=== PATIENT | male | born 1975 ===

== ENCOUNTER 2018-05-07 19:58 | Emergency (ER) | payer SELFPAY ==
[2018-05-07 20:06] VITALS: RESP 18; O2SAT 98
--- NOTE | 2018-05-07 20:42 | ED PDOC ---
HPI: Abdomen Time Seen by Provider: 05/07/18 20:22 Chief Complaint (Nursing): Abdominal Pain Chief Complaint (Provider): Abd pain History Per: Patient History/Exam Limitations: no limitations Onset/Duration Of Symptoms: Days Current Symptoms Are (Timing): Still Present Additional Complaint(s): Pain since yesterday to RLQ and R flank. No dysuria, weakness, chest pain, dyspnea. No testicular pain. No fever. No new food or drinks. Past Medical History Reviewed: Nursing Documentation, Vital Signs Vital Signs: Last Vital Signs Temp 98.3 F 05/07/18 20:04 Pulse 72 05/07/18 20:04 Resp 18 05/07/18 20:04 BP 160/101 H 05/07/18 20:04 Pulse Ox 98 05/07/18 20:42 - Medical History PMH: No Chronic Diseases - Surgical History Surgical History: No Surg Hx - Family History Family History: States: Unknown Family Hx - Living Arrangements Living Arrangements: With Family - Home Medications Home Medications: Ambulatory Orders Medication Instructions Recorded Famotidine [Pepcid] 20 mg PO DAILY PRN #6 tab 05/07/18 Ibuprofen [Motrin] 600 mg PO TID 7 Days tab 05/07/18 - Allergies Allergies/Adverse Reactions: Allergies Allergy/AdvReac Type Severity Reaction Status Date / Time No Known Allergies Allergy Verified 05/07/18 20:06 Review of Systems ROS Statement: Except As Marked, All Systems Reviewed And Found Negative Gastrointestinal: Positive for: Abdominal Pain Physical Exam - Reviewed Nursing Documentation Reviewed: Yes Vital Signs Reviewed: Yes - Physical Exam Appears: Positive for: Non-toxic, No Acute Distress Head Exam: Positive for: ATRAUMATIC, NORMAL INSPECTION, NORMOCEPHALIC Skin: Positive for: Normal Color, Warm, DRY Eye Exam: Positive for: EOMI, Normal appearance, PERRL ENT: Positive for: Normal ENT Inspection Neck: Positive for: Normal, Painless ROM Cardiovascular/Chest: Positive for: Regular Rate, Rhythm Respiratory: Positive for: CNT, Normal Breath Sounds Gastrointestinal/Abdominal: Positive for: Soft, Tenderness (RLQ ) Back: Positive for: R CVA Tenderness Extremity: Positive for: Normal ROM Neurologic/Psych: Positive for: Alert, Oriented - Laboratory Results Result Diagrams: 05/07/18 20:54 05/07/18 20:54 Interpretation Of Abn Labs: no acute - ECG O2 Sat by Pulse Oximetry: 98 - Progress ED Course And Treament: 2344: Pt. stable. AAOx3. Pain free. Tolerated PO. FU with pcp. Disposition - Clinical Impression Clinical Impression: Abdominal pain - Patient ED Disposition Is Patient to be Admitted: No Counseled Patient/Family Regarding: Studies Performed, Diagnosis, Need For Followup, Rx Given - Disposition Referrals: [facility] [Outside] - 05/11/18 Disposition: Routine/Home Disposition Time: 23:45 Condition: STABLE Additional Instructions: Return if not better in 3 days. Prescriptions: Famotidine [Pepcid] 20 mg PO DAILY PRN #6 tab PRN Reason: Pain Ibuprofen [Motrin] 600 mg PO TID 7 Days tab Instructions: Acute Abdomen (Belly Pain), Adult (DC) Print Language: GERMAN
[2018-05-07 20:57] LABS: BASO # 0.1 K/uL (0.0-0.2); BASO % 1.4 % (0.0-2.0); EOS # 0.1 K/uL (0.0-0.7); EOS % 1.4 % (0.0-4.0); HEMOGLOBIN 14.4 g/dL (12.0-18.0); LYMPH # 2.4 K/uL (1.0-4.3); LYMPH % 32.9 % (20.0-40.0); MEAN CELL VOLUME 89.2 fl (80.0-94.0); MEAN CORPUSCULAR HEMOGLOBIN 30.2 pg (27.0-31.0); MEAN CORPUSCULAR HGB CONC 33.9 g/dL (33.0-37.0); MEAN PLATELET VOLUME 7.6 fl (7.2-11.7); MONO % 13.4 % (0.0-10.0); NEUT # 3.7 K/uL (1.8-7.0); NEUT % 50.9 % (50.0-75.0); NRBC % 0.1 % (0.0-0.0); RBC 4.77 Mil/uL (4.40-5.90); RED CELL DISTRIBUTION WIDTH 12.9 % (11.5-14.5); WHITE BLOOD COUNT 7.3 K/uL (4.8-10.8)
[2018-05-07] MEDS: Sodium Chloride 0.9% 1,000 ML IV STA (20:59)
[2018-05-07] MEDS: Iohexol 240 (50 ml) PO ONE (21:04)
[2018-05-07 21:25] LABS: ALB/GLOB RATIO 1.3 (1.0-2.1); ALBUMIN 4.2 g/dL (3.5-5.0); ALT/SGPT 46 U/L (21-72); AST/SGOT 38 U/L (17-59); BLOOD UREA NITROGEN 10 mg/dl (9-20); CALCIUM 9.2 mg/dL (8.4-10.2); GFR NON-AFRICAN AMERICAN > 60
[2018-05-07 21:43] LABS: URINE BACTERIA RARE (<OCC); URINE BILIRUBIN NEGATIVE (NEGATIVE); URINE BLOOD NEGATIVE (NEGATIVE); URINE CLARITY CLEAR (Clear); URINE COLOR YELLOW (YELLOW); URINE GLUCOSE (UA) NEG (Normal); URINE LEUKOCYTE ESTERASE NEG Leu/uL (Negative); URINE PROTEIN NEGATIVE (NEGATIVE); URINE UROBILINOGEN 0.2-1.0 mg/dL (0.2-1.0)
[2018-05-07] MEDS ORDERED: Sodium Chloride 0.9% 50 ML IV ONE (22:18)
[2018-05-07] MEDS ORDERED: Iohexol 300 100 ML IJ ONE (22:18)
[2018-05-07 23:55] VITALS: BP 141/93; PULSE 55; TEMP 97.9
--- NOTE | 2018-05-08 07:48 | CT ---
Date of service: 05/07/2018 PROCEDURE: CT Abdomen and Pelvis with contrast HISTORY: abd pain COMPARISON: None. TECHNIQUE: Contrast dose: Radiation dose: Total exam DLP = mGy-cm. This CT exam was performed using one or more of the following dose reduction techniques: Automated exposure control, adjustment of the mA and/or kV according to patient size, and/or use of iterative reconstruction technique. FINDINGS: LOWER THORAX: Unremarkable. LIVER: Unremarkable. No gross lesion or ductal dilatation. GALLBLADDER AND BILE DUCTS: Unremarkable. PANCREAS: Unremarkable. No gross lesion or ductal dilatation. SPLEEN: Unremarkable. ADRENALS: Unremarkable. No mass. KIDNEYS AND URETERS: Unremarkable. No hydronephrosis. No solid mass. VASCULATURE: Unremarkable. No aortic aneurysm. BOWEL: Unremarkable. No obstruction. No gross mural thickening. APPENDIX: Normal appendix. PERITONEUM: Unremarkable. No free fluid. No free air. LYMPH NODES: Unremarkable. No enlarged lymph nodes. BLADDER: Unremarkable. REPRODUCTIVE: Unremarkable. BONES: No acute fracture. OTHER FINDINGS: None. IMPRESSION: Unremarkable contrast enhanced CT of the abdomen and pelvis.
== END 2018-05-07 23:56 | disposition home or self-care (01) ==
LOC: H.ER 19:58
DX: R10.31 Right lower quadrant pain (principal)
CPT/HCPCS: 74177; 80053; 81003; 85025; 96374; 99284; J1885; J7030; Q9966; Q9967

== ENCOUNTER 2018-12-01 14:55 | Observation (INO) | payer SELFPAY ==
--- NOTE | 2018-12-01 15:41 | ED PDOC ---
HPI: Hypertension/Hypotension Time Seen by Provider: 12/01/18 15:05 Chief Complaint (Nursing): Chest Pain Chief Complaint (Provider): High BP, Chest Pressure History Per: Patient History/Exam Limitations: no limitations Onset/Duration Of Symptoms: Days (x5) Current Symptoms Are (Timing): Still Present Additional Complaint(s): 43 year old male present to the ED after [facility] referral for evaluation of elevated blood pressure at home and left sided chest pressure associated with shortness of breath and left arm tingling for the past five days. Patient denies other complaints or history of hypertension. PMD: [facility] Past Medical History Reviewed: Historical Data, Nursing Documentation, Vital Signs Vital Signs: Last Vital Signs Temp 98.3 F 12/01/18 15:01 Pulse 66 12/01/18 15:01 Resp 16 12/01/18 15:01 BP 162/93 H 12/01/18 15:01 Pulse Ox 98 12/01/18 15:01 - Medical History PMH: No Chronic Diseases - Surgical History Surgical History: No Surg Hx - Family History Family History: States: Unknown Family Hx - Social History Current smoker - smoking cessation education provided: No - Home Medications Home Medications: Ambulatory Orders Medication Instructions Recorded Aspirin [Aspirin Chewable] 81 mg PO DAILY #30 ctb 12/02/18 - Allergies Allergies/Adverse Reactions: Allergies Allergy/AdvReac Type Severity Reaction Status Date / Time No Known Allergies Allergy Verified 12/01/18 15:01 Review of Systems ROS Statement: Except As Marked, All Systems Reviewed And Found Negative Cardiovascular: Positive for: Chest Pain (chest pressure left sided), Other (elevated BP) Respiratory: Positive for: Shortness of Breath Neurological: Positive for: Other (tingling of left arm) Physical Exam - Reviewed Nursing Documentation Reviewed: Yes Vital Signs Reviewed: Yes - Physical Exam Appears: Positive for: No Acute Distress Head Exam: Positive for: ATRAUMATIC, NORMAL INSPECTION, NORMOCEPHALIC Skin: Positive for: Normal Color, Warm, Dry. Negative for: Rash Eye Exam: Positive for: Normal appearance, EOMI, PERRL ENT: Positive for: Normal ENT Inspection Neck: Positive for: Normal, Painless ROM, Supple Cardiovascular/Chest: Positive for: Regular Rate, Rhythm. Negative for: Chest Non Tender (reproducible tenderness to left anterior chest wall) Respiratory: Positive for: Normal Breath Sounds. Negative for: Accessory Muscle Use, Wheezing, Respiratory Distress Gastrointestinal/Abdominal: Positive for: Normal Exam, Soft. Negative for: Tenderness Back: Positive for: Normal Inspection Extremity: Positive for: Normal ROM (all extremities). Negative for: Tenderness (of upper/lower bilateral extremities), Calf Tenderness, Swelling (of upper/lower bilateral extremities) Neurological/Psych: Positive for: Awake, Alert, Normal Tone, Symmetric/Intact Strength (upper/lower bilateral extremities), Oriented (x3), Gait (steady, unassisted), insurance business analyst II-XII (intact). Negative for: Motor/Sensory Deficits, Facial Droop - Laboratory Results Result Diagrams: 12/02/18 05:05 12/02/18 05:05 - ECG Interpretation Of ECG: NSR @ 60, no ST-T changes. O2 Sat by Pulse Oximetry: 98 (RA) Pulse Ox Interpretation: Normal Medical Decision Making Medical Decision Making: Time: 1503 Initial Impression: hypertension, chest pressure Initial Plan: --EKG --CMP --Trop I --U-dip --CBC with differential --PTT / PT --CXR --Urinalysis --Reevaluation Scribe Attestation: Documented by Karina Mancera, acting as a scribe for Skylar Warrne MD. Provider Scribe Attestation: All medical record entries made by the Scribe were at my direction and personally dictated by me. I have reviewed the chart and agree that the record accurately reflects my personal performance of the history, physical exam, medical decision making, and the department course for this patient. I have also personally directed, reviewed, and agree with the discharge instructions and disposition. Disposition - Clinical Impression Clinical Impression: Chest pain - Patient ED Disposition Is Patient to be Admitted: Yes - Disposition Disposition Time: 16:41 Condition: STABLE - Pt Status Changed To: Hospital Disposition Of: Observation - POA Present On Arrival: None
[2018-12-01 15:54] LABS: BASO % 0.8 % (0.0-2.0); EOS # 0.2 K/uL (0.0-0.7); EOS % 2.7 % (0.0-4.0); HEMOGLOBIN 14.4 g/dL (12.0-18.0); LYMPH % 31.7 % (20.0-40.0); MEAN CELL VOLUME 90.4 fl (80.0-94.0); MEAN CORPUSCULAR HEMOGLOBIN 30.1 pg (27.0-31.0); MEAN CORPUSCULAR HGB CONC 33.3 g/dL (33.0-37.0); MEAN PLATELET VOLUME 7.6 fl (7.2-11.7); MONO # 0.9 K/uL (0.0-0.8); MONO % 14.3 % (0.0-10.0); NEUT # 3.1 K/uL (1.8-7.0); NEUT % 50.5 % (50.0-75.0); RBC 4.8 Mil/uL (4.40-5.90); RED CELL DISTRIBUTION WIDTH 13.5 % (11.5-14.5); WHITE BLOOD COUNT 6.1 K/uL (4.8-10.8)
[2018-12-01 16:06] LABS: ALB/GLOB RATIO 1.2 (1.0-2.1); ALBUMIN 4.3 g/dL (3.5-5.0); BLOOD UREA NITROGEN 10 mg/dl (9-20); CALCIUM 9.2 mg/dL (8.4-10.2); GFR NON-AFRICAN AMERICAN > 60
[2018-12-01 16:11] LABS: ALT/SGPT 35 U/L (21-72); AST/SGOT 41 U/L (17-59)
[2018-12-01 16:15] LABS: INR 1.1; PROTHROMBIN TIME 12.1 Seconds (9.8-13.1)
[2018-12-01 16:18] LABS: PARTIAL THROMBOPLASTIN TIME 32.5 Seconds (25.6-37.1)
--- NOTE | 2018-12-01 16:41 | CP.PCM.HP ---
<PopeMando brian - Last Filed: 12/01/18 17:06> History of Present Illness - History of Present Illness History of Present Illness: 43 yo male pt w/o relevant past medical history present to the ED c/o chest pain and elevated BP. Patient was sent from clinic. He endorses pain started 2 weeks on and off, 7/10, sharp radiated to L shoulder and L arm associated hand numbness, TERRAZAS, dizziness and mild sob when he exercises. Patient reports pain either at rest or excertion. No alleviating or aggravating factors, no took pain medicines at home. No previous episodes of CP in the past. He also endorses checked BP at home with elevated measures but does not remember the numbers exactly. BP in ED 162/93. Otherwise he denies fever, nausea, vomiting, diaphoresis, jaw pain, weakness, abd pain diarrhea/constipation or urinary sx. 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 PMD: at [facility] ( first time today) PMH: denies FMH: Mother HTN, father from "DM complication" Meds: none NKDA PSH: denies SH: no etoh, tobacco or ilicit drugs use. ED course: - vitals wnl except BP 162/93 - CXR negative - EKG nsr, no acute changes - troponin x1 negative Present on Admission - Present on Admission Any Indicators Present on Admission: No Review of Systems - Review of Systems All systems: reviewed and no additional remarkable complaints except (HPI) Past Patient History - Past Social History Smoking Status: Never Smoked - CARDIAC Hx Cardiac Disorders: No - PULMONARY Hx Respiratory Disorders: No - NEUROLOGICAL Hx Neurological Disorder: No - HEENT Hx HEENT Problems: No - RENAL Hx Chronic Kidney Disease: No - ENDOCRINE/METABOLIC Hx Endocrine Disorders: No - HEMATOLOGICAL/ONCOLOGICAL Hx Blood Disorders: No - INTEGUMENTARY Hx Dermatological Problems: No - MUSCULOSKELETAL/RHEUMATOLOGICAL Hx Musculoskeletal Disorders: No - GASTROINTESTINAL Hx Gastrointestinal Disorders: No - GENITOURINARY/GYNECOLOGICAL Hx Genitourinary Disorders: No - PSYCHIATRIC Hx Psychophysiologic Disorder: No Hx Substance Use: No - SURGICAL HISTORY Hx Surgeries: No - ANESTHESIA Hx Anesthesia: No Meds Allergies/Adverse Reactions: Allergies Allergy/AdvReac Type Severity Reaction Status Date / Time No Known Allergies Allergy Verified 12/01/18 15:01 Physical Exam - Constitutional Appears: No Acute Distress - Head Exam Head Exam: NORMAL INSPECTION - Eye Exam Eye Exam: EOMI, PERRL - Respiratory Exam Respiratory Exam: Clear to Auscultation Bilateral, NORMAL BREATHING PATTERN. absent: Rales, Rhonchi, Wheezes - Cardiovascular Exam Cardiovascular Exam: REGULAR RHYTHM, +S1, +S2. absent: Tachycardia Additional comments: Chest wall tender to palpation on the L side - GI/Abdominal Exam GI & Abdominal Exam: Normal Bowel Sounds, Soft. absent: Distended, Tenderness - Extremities Exam Extremities exam: Negative for: calf tenderness, pedal edema - Neurological Exam Neurological exam: Alert, CN II-XII Intact, Oriented x3 - Skin Skin Exam: Dry, Intact, Warm Results - Vital Signs Recent Vital Signs: Last Vital Signs Temp 98.3 F 12/01/18 15:01 Pulse 66 12/01/18 15:01 Resp 16 12/01/18 15:01 BP 162/93 H 12/01/18 15:01 Pulse Ox 98 12/01/18 15:44 - Labs Result Diagrams: 12/01/18 15:48 12/01/18 15:48 Labs: Laboratory Results - last 24 hr 12/01/18 12/01/18 12/01/18 15:48 15:48 15:48 WBC 6.1 RBC 4.80 Hgb 14.4 Hct 43.4 MCV 90.4 MCH 30.1 MCHC 33.3 RDW 13.5 Plt Count 273 MPV 7.6 Neut % (Auto) 50.5 Lymph % (Auto) 31.7 [place] % (Auto) 14.3 H Eos % (Auto) 2.7 Baso % (Auto) 0.8 Neut # (Auto) 3.1 Lymph # (Auto) 2.0 [place] # (Auto) 0.9 H Eos # (Auto) 0.2 Baso # (Auto) 0.0 PT 12.1 INR 1.1 APTT 32.5 Sodium 138 Potassium 4.0 Chloride 101 Carbon Dioxide 28 Anion Gap 13 BUN 10 Creatinine 0.7 L Est GFR ( Amer) > 60 Est GFR (Non-Af Amer) > 60 Random Glucose 98 Calcium 9.2 Total Bilirubin 1.0 AST 41 ALT 35 Alkaline Phosphatase 80 Total Protein 7.9 Albumin 4.3 Globulin 3.6 Albumin/Globulin Ratio 1.2 Assessment & Plan - Assessment and Plan (Free Text) Assessment: 43 yo male pt w/o relevant past medical history admitted due to chest pain and elevated blood pressure. Plan: Chest pain R/o ACS vs Chostochodritis - reproducible pain on palpation - admit to tele for obs - ASA 325 mg - toradol IV once - Nitroglycerin SL prn - EKG showed NSR, no acute changes - troponin x1 negative, f/ trending - EKG in am - labs in am Elevated BP - symptomatic - started on metoprolol 25 mg q12h - monitor VS DVT ppx - scd - lovenox sq Case seen and examined with Dr Manny Lama PGY 2 <Leighton Bryant D - Last Filed: 12/01/18 17:18> Results - Vital Signs Recent Vital Signs: Last Vital Signs Temp 98.3 F 12/01/18 15:01 Pulse 66 12/01/18 15:01 Resp 16 12/01/18 15:01 BP 162/93 H 12/01/18 15:01 Pulse Ox 98 12/01/18 16:42 - Labs Result Diagrams: 12/01/18 15:48 12/01/18 15:48 Labs: Laboratory Results - last 24 hr 12/01/18 12/01/18 12/01/18 15:48 15:48 15:48 WBC 6.1 RBC 4.80 Hgb 14.4 Hct 43.4 MCV 90.4 MCH 30.1 MCHC 33.3 RDW 13.5 Plt Count 273 MPV 7.6 Neut % (Auto) 50.5 Lymph % (Auto) 31.7 [place] % (Auto) 14.3 H Eos % (Auto) 2.7 Baso % (Auto) 0.8 Neut # (Auto) 3.1 Lymph # (Auto) 2.0 [place] # (Auto) 0.9 H Eos # (Auto) 0.2 Baso # (Auto) 0.0 PT 12.1 INR 1.1 APTT 32.5 Sodium 138 Potassium 4.0 Chloride 101 Carbon Dioxide 28 Anion Gap 13 BUN 10 Creatinine 0.7 L Est GFR ( Amer) > 60 Est GFR (Non-Af Amer) > 60 Random Glucose 98 Calcium 9.2 Total Bilirubin 1.0 AST 41 ALT 35 Alkaline Phosphatase 80 Troponin I < 0.0120 Total Protein 7.9 Albumin 4.3 Globulin 3.6 Albumin/Globulin Ratio 1.2 Attending/Attestation - Attestation I have personally seen and examined this patient.: Yes I have fully participated in the care of the patient.: Yes I have reviewed all pertinent clinical information: Yes Notes (Text): 12/01/18 17:17 Patient seen and examined with resident. Case discussed and agreed with assessment and plan of management.
--- NOTE | 2018-12-01 17:17 | RAD ---
HISTORY: CP COMPARISON: None available. TECHNIQUE: Chest PA and lateral FINDINGS: LUNGS: No focal consolidation. Please note that chest x-ray has limited sensitivity for the detection of pulmonary masses. PLEURA: No significant pleural effusion identified. No definite pneumothorax . CARDIOVASCULAR: The cardiomediastinal silhouette appears within normal limits of size. No atherosclerotic calcification present. OSSEOUS STRUCTURES: No acute osseous abnormality identified. VISUALIZED UPPER ABDOMEN: Unremarkable. OTHER FINDINGS: None. IMPRESSION: No focal consolidation.
[2018-12-01 20:35] LABS: URINE BILIRUBIN NEGATIVE (NEGATIVE); URINE BLOOD SMALL (NEGATIVE); URINE CLARITY CLEAR (Clear); URINE COLOR YELLOW (YELLOW); URINE GLUCOSE (UA) NEG (NEGATIVE); URINE LEUKOCYTE ESTERASE NEG Leu/uL (Negative); URINE PROTEIN NEGATIVE (NEGATIVE); URINE UROBILINOGEN 0.2-1.0 mg/dL (0.2-1.0)
[2018-12-01] MEDS ORDERED: Influenza Vaccine (5 YR UP)/PF 60 MCG/0.5 ML SYR IM ONE (23:14)
[2018-12-01] MEDS ORDERED: Influenza Vaccine 60 mcg/0.5 mL SYR (4YR UP) IM ONE (23:30)
[2018-12-02 00:20] VITALS: RESP 18
[2018-12-02 05:33] LABS: BASO % 0.7 % (0.0-2.0); EOS # 0.2 K/uL (0.0-0.7); EOS % 3.1 % (0.0-4.0); LYMPH # 1.9 K/uL (1.0-4.3); LYMPH % 28.9 % (20.0-40.0); MEAN CELL VOLUME 90.2 fl (80.0-94.0); MEAN CORPUSCULAR HGB CONC 33.2 g/dL (33.0-37.0); MEAN PLATELET VOLUME 7.8 fl (7.2-11.7); MONO # 0.9 K/uL (0.0-0.8); MONO % 14.6 % (0.0-10.0); NEUT # 3.4 K/uL (1.8-7.0); NEUT % 52.7 % (50.0-75.0); NRBC % 0.1 % (0.0-0.0); RBC 4.99 Mil/uL (4.40-5.90); WHITE BLOOD COUNT 6.4 K/uL (4.8-10.8)
[2018-12-02 05:48] LABS: ALB/GLOB RATIO 1.2 (1.0-2.1); ALBUMIN 4.2 g/dL (3.5-5.0); ALT/SGPT 48 U/L (21-72); AST/SGOT 32 U/L (17-59); BLOOD UREA NITROGEN 15 mg/dl (9-20); CALCIUM 9.2 mg/dL (8.4-10.2); GFR NON-AFRICAN AMERICAN > 60; HDL CHOLESTEROL 34 MG/DL (30-70)
[2018-12-02 05:58] LABS: LDL CHOLESTEROL 133 mg/dL (0-129)
[2018-12-02 08:04] VITALS: BP 131/90; PULSE 79; TEMP 98.1; O2SAT 98
[2018-12-02] MEDS ORDERED: Enoxaparin 40 mg Syringe SC SCH (09:00)
--- NOTE | 2018-12-02 11:10 | CP.PCM.DIS ---
<SaigeGabriela - Last Filed: 12/02/18 11:06> Provider - Provider Date of Admission: 12/01/18 16:41 Attending physician: Leighton Bryant MD Time Spent in preparation of Discharge (in minutes): 30 Diagnosis - Discharge Diagnosis (1) Chest pain Status: Acute Hospital Course - Lab Results Lab Results: Most Recent Lab Values WBC 6.4 K/uL (4.8-10.8) 12/02/18 05:05 RBC 4.99 Mil/uL (4.40-5.90) 12/02/18 05:05 Hgb 15.0 g/dL (12.0-18.0) 12/02/18 05:05 Hct 45.0 % (35.0-51.0) 12/02/18 05:05 MCV 90.2 fl (80.0-94.0) 12/02/18 05:05 MCH 30.0 pg (27.0-31.0) 12/02/18 05:05 MCHC 33.2 g/dL (33.0-37.0) 12/02/18 05:05 RDW 14.0 % (11.5-14.5) 12/02/18 05:05 Plt Count 275 K/uL (130-400) 12/02/18 05:05 MPV 7.8 fl (7.2-11.7) 12/02/18 05:05 Neut % (Auto) 52.7 % (50.0-75.0) 12/02/18 05:05 Lymph % (Auto) 28.9 % (20.0-40.0) 12/02/18 05:05 [place] % (Auto) 14.6 % (0.0-10.0) H 12/02/18 05:05 Eos % (Auto) 3.1 % (0.0-4.0) 12/02/18 05:05 Baso % (Auto) 0.7 % (0.0-2.0) 12/02/18 05:05 Neut # (Auto) 3.4 K/uL (1.8-7.0) 12/02/18 05:05 Lymph # (Auto) 1.9 K/uL (1.0-4.3) 12/02/18 05:05 [place] # (Auto) 0.9 K/uL (0.0-0.8) H 12/02/18 05:05 Eos # (Auto) 0.2 K/uL (0.0-0.7) 12/02/18 05:05 Baso # (Auto) 0.0 K/uL (0.0-0.2) 12/02/18 05:05 PT 12.1 Seconds (9.8-13.1) 12/01/18 15:48 INR 1.1 12/01/18 15:48 APTT 32.5 Seconds (25.6-37.1) 12/01/18 15:48 Sodium 138 mmol/l (132-148) 12/02/18 05:05 Potassium 3.6 MMOL/L (3.6-5.0) 12/02/18 05:05 Chloride 101 mmol/L (98-107) 12/02/18 05:05 Carbon Dioxide 30 mmol/L (22-30) 12/02/18 05:05 Anion Gap 11 (10-20) 12/02/18 05:05 BUN 15 mg/dl (9-20) 12/02/18 05:05 Creatinine 0.8 mg/dl (0.8-1.5) 12/02/18 05:05 Est GFR ( Amer) > 60 12/02/18 05:05 Est GFR (Non-Af Amer) > 60 12/02/18 05:05 Random Glucose 94 mg/dL (75-110) 12/02/18 05:05 Calcium 9.2 mg/dL (8.4-10.2) 12/02/18 05:05 Total Bilirubin 1.6 mg/dl (0.2-1.3) H 12/02/18 05:05 AST 32 U/L (17-59) 12/02/18 05:05 ALT 48 U/L (21-72) 12/02/18 05:05 Alkaline Phosphatase 79 U/L (38-126) 12/02/18 05:05 Troponin I < 0.0120 ng/mL (0.00-0.120) 12/02/18 05:05 Total Protein 7.7 G/DL (6.3-8.2) 12/02/18 05:05 Albumin 4.2 g/dL (3.5-5.0) 12/02/18 05:05 Globulin 3.5 gm/dL (2.2-3.9) 12/02/18 05:05 Albumin/Globulin Ratio 1.2 (1.0-2.1) 12/02/18 05:05 Triglycerides 197 mg/DL (0-149) H 12/02/18 05:05 Cholesterol 205 mg/dL (0-199) H 12/02/18 05:05 LDL Cholesterol Direct 133 mg/dL (0-129) H 12/02/18 05:05 HDL Cholesterol 34 MG/DL (30-70) 12/02/18 05:05 TSH 3rd Generation 2.08 mIU/ML (0.46-4.68) 12/02/18 05:05 Urine Color Yellow (YELLOW) 12/01/18 15:56 Urine Clarity Clear (Clear) 12/01/18 15:56 Urine pH 7.0 (5.0-8.0) 12/01/18 15:56 Ur Specific [place] 1.014 (1.003-1.030) 12/01/18 15:56 Urine Protein Negative mg/dL (NEGATIVE) 12/01/18 15:56 Urine Glucose (UA) Neg mg/dL (NEGATIVE) 12/01/18 15:56 Urine Ketones Negative mg/dL (NEGATIVE) 12/01/18 15:56 Urine Blood Small (NEGATIVE) 12/01/18 15:56 Urine Nitrate Negative (NEGATIVE) 12/01/18 15:56 Urine Bilirubin Negative (NEGATIVE) 12/01/18 15:56 Urine Urobilinogen 0.2-1.0 mg/dL (0.2-1.0) 12/01/18 15:56 Ur Leukocyte Esterase Neg [place]/uL (Negative) 12/01/18 15:56 Urine RBC (Auto) 4 /hpf (0-3) H 12/01/18 15:56 Urine Microscopic WBC 1 /hpf (0-5) 12/01/18 15:56 - Hospital Course Hospital Course: 43 yo male pt w/o relevant past medical history admitted due to chest pain and elevated blood pressure. Troponin 2 x negative. EKG sinus bradycardia. Patient advised to follow up in [facility] - Date & Time of H&P Date of H&P: 12/02/18 Time of H&P: 11:10 Discharge Exam - Head Exam Head Exam: ATRAUMATIC, NORMAL INSPECTION, NORMOCEPHALIC - Eye Exam Eye Exam: Normal appearance Pupil Exam: NORMAL ACCOMODATION - ENT Exam ENT Exam: Mucous Membranes Moist - Respiratory Exam Respiratory Exam: NORMAL BREATHING PATTERN - Cardiovascular Exam Cardiovascular Exam: REGULAR RHYTHM, +S1, +S2. absent: Irregular Rhythm - GI/Abdominal Exam GI & Abdominal Exam: Unremarkable - Neurological Exam Neurological exam: Alert, Oriented x3 - Psychiatric Exam Psychiatric exam: Normal Affect - Skin Skin Exam: Normal Color Discharge Plan - Discharge Medications Prescriptions: Aspirin [Aspirin Chewable] 81 mg PO DAILY #30 ctb Lisinopril [Zestril] 20 mg PO DAILY #30 tab - Follow Up Plan Condition: STABLE Disposition: HOME/ ROUTINE Instructions: Chest Pain (DC) Additional Instructions: follow up in the clinic in 1 week Referrals: [facility] [place] [Outside] <Leighton Bryant - Last Filed: 12/02/18 13:20> Provider - Provider Date of Admission: 12/01/18 16:41 Attending physician: Leighton Bryant MD Hospital Course - Lab Results Lab Results: Most Recent Lab Values WBC 6.4 K/uL (4.8-10.8) 12/02/18 05:05 RBC 4.99 Mil/uL (4.40-5.90) 12/02/18 05:05 Hgb 15.0 g/dL (12.0-18.0) 12/02/18 05:05 Hct 45.0 % (35.0-51.0) 12/02/18 05:05 MCV 90.2 fl (80.0-94.0) 12/02/18 05:05 MCH 30.0 pg (27.0-31.0) 12/02/18 05:05 MCHC 33.2 g/dL (33.0-37.0) 12/02/18 05:05 RDW 14.0 % (11.5-14.5) 12/02/18 05:05 Plt Count 275 K/uL (130-400) 12/02/18 05:05 MPV 7.8 fl (7.2-11.7) 12/02/18 05:05 Neut % (Auto) 52.7 % (50.0-75.0) 12/02/18 05:05 Lymph % (Auto) 28.9 % (20.0-40.0) 12/02/18 05:05 [place] % (Auto) 14.6 % (0.0-10.0) H 12/02/18 05:05 Eos % (Auto) 3.1 % (0.0-4.0) 12/02/18 05:05 Baso % (Auto) 0.7 % (0.0-2.0) 12/02/18 05:05 Neut # (Auto) 3.4 K/uL (1.8-7.0) 12/02/18 05:05 Lymph # (Auto) 1.9 K/uL (1.0-4.3) 12/02/18 05:05 [place] # (Auto) 0.9 K/uL (0.0-0.8) H 12/02/18 05:05 Eos # (Auto) 0.2 K/uL (0.0-0.7) 12/02/18 05:05 Baso # (Auto) 0.0 K/uL (0.0-0.2) 12/02/18 05:05 PT 12.1 Seconds (9.8-13.1) 12/01/18 15:48 INR 1.1 12/01/18 15:48 APTT 32.5 Seconds (25.6-37.1) 12/01/18 15:48 Sodium 138 mmol/l (132-148) 12/02/18 05:05 Potassium 3.6 MMOL/L (3.6-5.0) 12/02/18 05:05 Chloride 101 mmol/L (98-107) 12/02/18 05:05 Carbon Dioxide 30 mmol/L (22-30) 12/02/18 05:05 Anion Gap 11 (10-20) 12/02/18 05:05 BUN 15 mg/dl (9-20) 12/02/18 05:05 Creatinine 0.8 mg/dl (0.8-1.5) 12/02/18 05:05 Est GFR ( Amer) > 60 12/02/18 05:05 Est GFR (Non-Af Amer) > 60 12/02/18 05:05 Random Glucose 94 mg/dL (75-110) 12/02/18 05:05 Hemoglobin A1c 5.8 % (4.2-6.5) 12/02/18 05:05 Calcium 9.2 mg/dL (8.4-10.2) 12/02/18 05:05 Total Bilirubin 1.6 mg/dl (0.2-1.3) H 12/02/18 05:05 AST 32 U/L (17-59) 12/02/18 05:05 ALT 48 U/L (21-72) 12/02/18 05:05 Alkaline Phosphatase 79 U/L (38-126) 12/02/18 05:05 Troponin I < 0.0120 ng/mL (0.00-0.120) 12/02/18 05:05 Total Protein 7.7 G/DL (6.3-8.2) 12/02/18 05:05 Albumin 4.2 g/dL (3.5-5.0) 12/02/18 05:05 Globulin 3.5 gm/dL (2.2-3.9) 12/02/18 05:05 Albumin/Globulin Ratio 1.2 (1.0-2.1) 12/02/18 05:05 Triglycerides 197 mg/DL (0-149) H 12/02/18 05:05 Cholesterol 205 mg/dL (0-199) H 12/02/18 05:05 LDL Cholesterol Direct 133 mg/dL (0-129) H 12/02/18 05:05 HDL Cholesterol 34 MG/DL (30-70) 12/02/18 05:05 TSH 3rd Generation 2.08 mIU/ML (0.46-4.68) 12/02/18 05:05 Urine Color Yellow (YELLOW) 12/01/18 15:56 Urine Clarity Clear (Clear) 12/01/18 15:56 Urine pH 7.0 (5.0-8.0) 12/01/18 15:56 Ur Specific [place] 1.014 (1.003-1.030) 12/01/18 15:56 Urine Protein Negative mg/dL (NEGATIVE) 12/01/18 15:56 Urine Glucose (UA) Neg mg/dL (NEGATIVE) 12/01/18 15:56 Urine Ketones Negative mg/dL (NEGATIVE) 12/01/18 15:56 Urine Blood Small (NEGATIVE) 12/01/18 15:56 Urine Nitrate Negative (NEGATIVE) 12/01/18 15:56 Urine Bilirubin Negative (NEGATIVE) 12/01/18 15:56 Urine Urobilinogen 0.2-1.0 mg/dL (0.2-1.0) 12/01/18 15:56 Ur Leukocyte Esterase Neg [place]/uL (Negative) 12/01/18 15:56 Urine RBC (Auto) 4 /hpf (0-3) H 12/01/18 15:56 Urine Microscopic WBC 1 /hpf (0-5) 12/01/18 15:56 Attending/Attestation - Attestation I have personally seen and examined this patient.: Yes I have fully participated in the care of the patient.: Yes I have reviewed all pertinent clinical information, including history, physical exam and plan: Yes Notes (Text): 12/02/18 13:19 Patient seen and examined with resident. Case discussed and agreed with assessment. Patient discharged in stable condition. Chest pain not cardiac in origin.
--- NOTE | 2018-12-02 13:18 | CARD ---
APPROVED REPORT Date of service: 12/01/2018 EKG Measurement Heart [id number] MA [id number] <Conclusion> Normal sinus rhythm Normal ECG
--- NOTE | 2018-12-02 17:19 | CARD ---
APPROVED REPORT Date of service: 12/02/2018 EKG Measurement Heart [id number] <Conclusion> Sinus bradycardia Otherwise normal ECG
== END 2018-12-02 14:00 | disposition home or self-care (01) ==
LOC: H.ER 14:55 → H.ERHOLD 16:41 → H.TEL 22:37
DX: R07.89 Other chest pain (principal); I10 Essential (primary) hypertension; Z23 Encounter for immunization
CPT/HCPCS: 36415; 71046; 80053; 80061; 81003; 83036; 84443; 84484; 85025; 85610; 85730; 90471; 90674; 93005; 96374; 99285; G0378; J1650; J1885